=== PATIENT | male | born 1965 | race Two or more races ===

== ENCOUNTER 2018-09-29 10:00 | Inpatient (IN) | payer OTHER ==
[~2018-09-29] VITALS: Ht 172.7 cm; Wt 98.9 kg
[2018-09-29] MEDS ORDERED: UNISOM25 MG PO (12:28)
[2018-09-29] MEDS ORDERED: SENNA8.6 MG PO (12:28)
== END 2018-10-02 20:56 | disposition home or self-care (01) | DRG 395 ==
LOC: SURG 10-01 09:28 → O/R 10-01 09:28 → SURH 10-01 10:00 → SURG 10-01 14:46
PROVIDERS: ADMIT Colon & Rectal Surgery
PROC: 0DBP8ZZ Excision of Rectum, Via Natural or Artificial Opening Endoscopic (ICD-10-PCS; principal; 2018-10-01 10:30)
DX: D12.9 Benign neoplasm of anus and anal canal (principal); I11.9 Hypertensive heart disease without heart failure; R73.01 Impaired fasting glucose; E66.8 Other obesity; G47.33 Obstructive sleep apnea (adult) (pediatric); I87.2 Venous insufficiency (chronic) (peripheral); Z88.0 Allergy status to penicillin